=== PATIENT | female | born 1965 | race Two or more races ===

== ENCOUNTER 2016-11-11 10:39 | Day surgery (SDC) | payer OTHER ==
[2016-11-11 08:54] VITALS: BMI 34.0
[2016-11-11] MEDS ORDERED: PROPOFOL 20 ML ONE ×2 (10:59)
[2016-11-11 12:08] VITALS: TEMP 97.7
[2016-11-11 12:51] VITALS: BP 132/71; PULSE 72
== END 2016-11-11 13:00 | disposition home or self-care (01) ==
LOC: JASU-SURG 10:39 → JASU-ENDO 10:39
PROVIDERS: ATTEND Internal Medicine Gastroenterology
PROC: 0DBN8ZX Excision of Sigmoid Colon, Via Natural or Artificial Opening Endoscopic, Diagnostic (ICD-10-PCS; 2016-11-11)
PROC: 0DBK8ZX Excision of Ascending Colon, Via Natural or Artificial Opening Endoscopic, Diagnostic (ICD-10-PCS; principal; 2016-11-11 11:00)
DX: Z12.11 Encounter for screening for malignant neoplasm of colon (principal); K57.30 Diverticulosis of large intestine without perforation or abscess without bleeding; D12.2 Benign neoplasm of ascending colon; D12.7 Benign neoplasm of rectosigmoid junction; K64.8 Other hemorrhoids
CPT/HCPCS: 88305-TC

== ENCOUNTER 2018-06-07 06:24 | Emergency (ER) | payer OTHER ==
[2018-06-07 07:01] VITALS: BP 139/86; PULSE 108; TEMP 98.4; BMI 35.3
--- NOTE | 2018-06-07 07:29 | PDOC ---
Attending Attestation - Resident Resident Name: NandoRenee - ED Attending Attestation I have performed the following: I have examined & evaluated the patient, The case was reviewed & discussed with the resident, I agree w/resident's findings & plan, Exceptions are as noted - HPI HPI: 06/07/18 07:29 53yo F hx DM presents to the ED with diarrhea since yesterday. Pt reports innumerable episodes of NB diarrhea and everything is running right through her. +associated nausea, but no vomiting. Denies abdominal pain. Took 1 pill of immodium yesterday with no response. Has also been taking pedialyte to stay hydrated. Granddaughters with similar sxs yesterday. Presented to ED as she feels dehydrated. Denies fevers, chills, headache, weakness/numbness, dizziness , cp, sob, LE edema/pain, rashes. - Physicial Exam PE: 06/07/18 10:56 GENERAL: Awake, alert, and fully oriented, in no acute distress HEAD: No signs of trauma EYES: PERRLA, EOMI, sclera anicteric, conjunctiva clear ENT: Oropharynx clear without exudates. Moist mucosa NECK: Normal ROM, supple, no lymphadenopathy, JVD, or masses LUNGS: Breath sounds equal, clear to auscultation bilaterally. No wheezes, and no crackles HEART: Regular rate and rhythm, normal S1 and S2, no murmurs, rubs or gallops ABDOMEN: Soft, nontender, normoactive bowel sounds. No guarding, no rebound. No masses EXTREMITIES: Normal range of motion, no edema. No cords, erythema, or tenderness. WWP. NEUROLOGICAL: Normal speech, cranial nerves intact, equal strength and sensation b/l SKIN: Warm, Dry, normal turgor, no rashes or lesions noted. - Medical Decision Making 06/07/18 10:57 53yo F presents to the ED with diarrhea and nausea. Vitals initially with HR 108. Exam benign, with well appearing pt, no abd ttp Labs wnl, UA wnl Pt given 1L fluids, feels better Repeat exam remains benign. HR normalized to 88 Pt requests DC home, will f/u with PMD I discussed the physical exam findings, ancillary test results and final diagnoses with the patient. I answered all of the patient's questions. The patient was satisfied with the care received and felt comfortable with the discharge plan and treatment plan. The patient will call their primary care physician within 24 hours to arrange follow-up and will return to the Emergency Department with any new, persistent or worsening symptoms.
[2018-06-07] MEDS ORDERED: SODIUM CHLORIDE 0.9% 500 ML INFUS.BAG IV ONE (07:32)
--- NOTE | 2018-06-07 07:39 | PDOC ---
History of Present Illness - General Chief Complaint: Diarrhea Stated Complaint: DIARRHEA Time Seen by Provider: 06/07/18 07:25 - History of Present Illness Initial Comments: Nafisa Ceballos is a 53yo woman with a PMH of NIDDM who presents with one day of diarrhea. She reports that she has needed to "run to the bathroom every 5 minutes" since yesterday morning. She states the diarrhea is watery but not bloody. She denies nausea, vomiting, fever/chills, abdominal pain, congestion, recent hospitalization, recent antibiotic use, or any other associated symptoms. 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 She presented to the ED today because she felt that she might not be staying hydrated at home, and she was concerned that the diarrhea continued despite taking immodium yesterday. Past History - Past Medical History Allergies/Adverse Reactions: Allergies Allergy/AdvReac Type Severity Reaction Status Date / Time No Known Allergies Allergy Verified 06/07/18 06:57 Home Medications: Ambulatory Orders Fish Oil/Borage/Flax/Om3,6,9 1 [[place] 3-6-9 1,200 mg Softgel] 2 cap PO DAILY 01/17 Losartan Potassium [Cozaar -] 25 mg PO DAILY 11/11/16 metFORMIN HCL [Metformin HCl] 500 mg PO DAILY 11/11/16 COPD: No Diabetes: Yes HTN: Yes - Reproductive History Is Patient Now?: No Therapeutic (s) & number: No - Immunization History Immunization Up to Date: Yes - Suicide/Smoking/Psychosocial Hx Smoking Status: No Smoking History: Never smoked Have you smoked in the past 12 months: No Number of Cigarettes Smoked Daily: 0 Information on smoking cessation initiated: No Hx Alcohol Use: No Drug/Substance Use Hx: No Substance Use Type: None Hx Substance Use Treatment: No Review of Systems - Review of Systems Comments:: General: No fevers, no chills, no weight or appetite change, no malaise HEENT: No changes in vision, no changes in hearing, no congestion, no sore throat CV: No chest pain, no palpitations, no LE edema Pulm: No SOB, no cough, no wheezing GI: No nausea or vomiting, +diarrhea, no melena : No frequency, no urgency, no dysuria Musc: No back pain, no joint swelling, no recent injury Skin: No rash, no lesions, no erythema Endo: No excessive thirst, no heat/cold intolerance Heme: No unusual bruising or bleeding, no swollen glands Neuro: No syncope, no numbness/tingling, no focal weakness Vasc: No claudication Psych: No recent change in mood, no SI or HI *Physical Exam - Vital Signs Last Vital Signs Temp Pulse Resp BP Pulse Ox 98.4 F 108 H 18 139/86 97 06/07/18 06:58 06/07/18 06:58 06/07/18 06:58 06/07/18 06:58 06/07/18 06:58 - Physical Exam Comments: General: Comfortable, no acute distress HEENT: PERRL, EOMI, slightly dry mouth, voice normal, normal neck ROM Cards: RRR, no murmur appreciated Pulm: Comfortable on room air, clear to auscultation bilaterally Abd: Soft, nontender, nondistended Ext: Atraumatic. No LE edema. ROM intact. Vasc: Extremities WWP. Skin: Normal color, no rashes or lesions Neuro: A&Ox3, CN grossly intact, normal speech, motor/sensory grossly intact and symmetric Psych: Mood appropriate to situation ED Treatment Course - LABORATORY CBC & Chemistry Diagram: 06/07/18 07:30 06/07/18 07:30 Medical Decision Making - Medical Decision Making 06/07/18 07:33 Nafisa Ceballos is a 53yo woman with a PMH of NIDDM who presents with one day of frequent watery diarrhea w/o nausea, vomiting, abdominal pain, bloody stool, congestion/cough, or fever. She has multiple family members with the same symptoms within the past week. - Given h/o exposure to others with the same symptoms, most likely infectious diarrhea - No red flag symptoms such as fever, abdominal pain, or bloody diarrhea. Benign abdominal exam. Unlikely to be diverticulitis, no hospitalization/abx suggesting cdiff. No h/o recurrent episodes, unlikely to be IBD, crohns, UC. - Tachy in low 100's, most likely secondary to dehydration from diarrhea - CBC, CMP, UA to rule out severe systemic infection, eval dehydration 06/07/18 10:32 - Labs reviewed. No concerning abnormalities - Ms Ceballos states she feels much better, would like to go home - Discussed home care, return precautions, follow up at length. Ms Ceballos states understanding. Seen with Dr Mcfadden. Renee Collier PGY1 *DC/Admit/Observation/Transfer Diagnosis at time of Disposition: Diarrhea - Discharge Dispostion Disposition: HOME Condition at time of disposition: Stable Decision to Admit order: No - Referrals Referrals: Ramesh Lanza [Primary Care Provider] - - Patient Instructions Printed Discharge Instructions: DI for Diarrhea and Traveler's Diarrhea -- Adult Additional Instructions: Discharge Instructions: You were seen in the emergency department for diarrhea. You had blood tests, but there were no concerning findings. You were given IV fluids for rehydration. Your diarrhea is most likely due to a viral illness that you caught from your family members over the last week. Home Care and Follow Up; - Make sure you are drinking a lot of fluids to stay hydrated. - You may eat if you are hungry, but do not force yourself to eat. It is OK if you do not have an appetite as long as you are drinking liquids. - Avoid caffeine, alcohol, spicy foods, and oily/fatty food - If you are not feeling better within the next 2-3 days, make an appointment to follow up with your regular doctor. - Seek immediate medical care if your symptoms worsen, you see blood in your stool, you develop a fever to 101F or higher, you cannot stay hydrated, or you h ave any other medical emergency. Instrucciones de descarga: Usted fue atendido en el servicio de urgencias por diarrea. Se le realizaron anlisis de giovani, hawa no hubo hallazgos preocupantes. Le administraron lquidos por va intravenosa para la rehidratacin. Nichole diarrea es ms probable debido a elsie enfermedad viral que se contagi de los miembros de nichole yolanda neeta la ltima semana. Atencin domiciliaria y seguimiento; - Asegrate de beber muchos lquidos para mantenerte hidratado. - Puede comer si tiene hambre, hawa no se obligue a comer. Est jignesh si no tiene apetito mientras est bebiendo lquidos. - Evite la cafena, el alcohol, los alimentos picantes y los alimentos grasos / grasos. - Si no se siente mejor en los prximos 2 o 3 rodriguez, selina elsie marisa para hacer un seguimiento con nichole mdico habitual. - Busque atencin mdica inmediata si dede sntomas empeoran, si ve giovani en las heces, tiene fiebre a 101F o ms, no puede mantenerse hidratado o si tiene alguna otra emergencia mdica. Print Language: LAO - Post Discharge Activity
[2018-06-07 08:36] LABS: BASO % 0.3 % (0-2.0); EOS % 1.6 % (0-4.5); HEMATOCRIT 41.9 % (32.4-45.2); LYMPH % 7.5 % (8-40); MCH 28.6 pg (25.7-33.7); MCHC 33.3 g/dl (32.0-36.0); MEAN CELL VOLUME 85.8 fl (80-96); MEAN PLT VOLUME 7.1 fl (7.5-11.1); MONO % 5.8 % (3.8-10.2); NEUT % 84.8 % (42.8-82.8); PLATELET COUNT 296 K/MM3 (134-434); RBC 4.89 M/mm3 (3.60-5.2); RDW 13.9 % (11.6-15.6); WHITE BLOOD COUNT 8.7 K/mm3 (4.0-10.0)
[2018-06-07 08:50] LABS: ALBUMIN 3.9 g/dl (3.4-5.0); ALK PHOS 125 U/L (45-117); ANION GAP 10 MMOL/L (8-16); BILIRUBIN,TOTAL 0.4 mg/dL (0.2-1); BLOOD UREA NITROGEN 8 mg/dL (7-18); CALCIUM 8.7 mg/dL (8.5-10.1); CHLORIDE 106 mmol/L (98-107); CO2 22 mmol/L (21-32); CREATININE 0.7 mg/dL (0.55-1.3); GLUCOSE,RANDOM 147 mg/dL (74-106); SGOT/AST 17 U/L (15-37); SGPT/ALT 26 U/L (13-61); SODIUM 137 mmol/L (136-145); TOT PROT 7.7 g/dl (6.4-8.2)
[2018-06-07 08:57] LABS: URINE APPEARANCE CLEAR; URINE BILIRUBIN NEGATIVE (NEGATIVE); URINE COLOR YELLOW; URINE GLUCOSE (UA) 3+ (NEGATIVE); URINE KETONE TRACE (NEGATIVE); URINE LEUK ESTERASE NEGATIVE (NEGATIVE); URINE NITRITE NEGATIVE (NEGATIVE); URINE PROTEIN NEGATIVE (NEGATIVE); URINE UROBILINOGEN 0.2 mg/dL (0.2-1.0)
== END 2018-06-07 10:52 | disposition home or self-care (01) ==
LOC: JER 06:24
DX: R19.7 Diarrhea, unspecified (principal); E11.9 Type 2 diabetes mellitus without complications; Z79.84 Long term (current) use of oral hypoglycemic drugs
CPT/HCPCS: 36415; 80053; 81003; 85025; 99285-25